=== PATIENT | male | born 1960 | race Caucasian/White ===

== ENCOUNTER 2020-04-06 08:30 | Emergency (ER) | payer OTHER ==
[~2020-04-06] VITALS: Ht 180.3 cm; Wt 86.2 kg
--- NOTE | 2020-04-06 09:16 | Emergency Department Note ---
History of Present Illnes History of Present Illness Chief Complaint: Back Pain History of Present Illness This is a 60 year old male with no significant past medical history, who presents for evaluation of low back pain and muscle spasm. Patient states that he stood up in [employer] 2 days ago, noticed pain in his mid low back. Pain is not radiated down into the buttocks or legs. He denies any numbness, tingling, or lower extremity weakness. Patient denies any back injury or heavy lifting. He states he had a similar episode approximately 25 years ago, but has no history of chronic back pain. He took some Tylenol for the pain, without relief. Patient states that he got out of the shower this morning, and reached for his shirt on the counter, and he developed a severe spasm in the low back. Historian: Patient Arrival Mode: [employer] Delivery [employer] Required: No Onset (how long ago): day(s) (2) Location: lower lumbar Quality: aching, tight Radiation: Reports non-radiation Severity: severe Onset quality: sudden Duration (how long): day(s) (2) Timing of current episode: constant Progression: unchanged Chronicity: new Context: Denies recent illness, Denies recent surgery, Denies trauma/injury Relieving factors: none Exacerbating factors: movement, other (pain is worse with standing) Associated symptoms: Reports denies other symptoms; Denies chest pain, Denies fever/chills, Denies nausea/vomiting, Denies weakness Treatments prior to arrival: other (Tylenol) Past Medical/Family History Physician Review I have reviewed the patient's past medical and family history. Any updates have been documented here. Past Medical History Recent Fever: No Clinical Suspicion of Infectio: No New/Unexplained Change in Ment: No Past Medical History: None Past Surgical History: Hernia Repair Other Surgery: SHOULDER Social History Smoking Cessation: Never Smoker Counseling Performed: No Any Illegal Drug Use: No TB Exposure/Symptoms: No Physically hurt or threatened: No Family History Family history of heart diseas: No Other Any Pre-Existing Lines (PICC,: No Is patient up to date on immun: Yes Review of Systems Review of Systems Constitutional: Denies chills, Denies fever, Denies weakness EENTM: Reports no symptoms Cardiovascular: Denies chest pain, Denies edema Respiratory: Denies cough, Denies dyspnea Gastrointestinal: Denies abdominal pain, Denies nausea, Denies vomiting Genitourinary: Reports no symptoms Musculoskeletal: Reports back pain; Denies muscle pain, Denies muscle stiffness, Denies neck pain Integumentary: Reports no symptoms Neurological: Denies numbness, Denies paresthesia, Denies tingling, Denies we akness Psychological: Denies anxiety, Denies depressed Endocrine: Reports no symptoms Hematological/Lymphatic: Reports no symptoms Review of other systems: All other systems negative Physical Exam Related Data Allergies: Coded Allergies: iodine (Verified Allergy, Mild, REDNESS TO HANDS , 04/06/20) Triage Vital Signs Vital Signs Date Time Temp Pulse Resp B/P (MAP) Pulse Ox O2 Delivery O2 Flow Rate FiO2 04/06/20 08:45 98.2 67 17 123/79 99 Vital signs reviewed: Yes Physical Exam CONSTITUTIONAL Constitutional: Present well-developed, Present well-nourished HENT HENT: Present normocephalic, Present atraumatic, Present oropharynx clear/moist, Present nose normal HENT L/R: Present left ext ear normal, Present right ext ear normal EYES Eyes: Reports PERRL, Reports conjunctivae normal NECK Neck: Present ROM normal PULMONARY Pulmonary: Present effort normal, Present breath sounds normal CARDIOVASCULAR Cardiovascular: Present regular rhythm, Present heart sounds normal, Present capillary refill normal, Present normal rate GASTROINTESTINAL Abdominal: Present soft, Present nontender, Present bowel sounds normal GENITOURINARY SKIN Skin: Present warm, Present dry; Absent bruising MUSCULOSKELETAL Musculoskeletal: Present ROM normal (pain with flexion more than 60 degrees; neg bilat straight leg raise) NEUROLOGICAL Neurological: Present alert, Present oriented x 3, Present no gross motor or sensory deficits; Absent cranial nerve deficit, Absent abnormal gait PSYCHOLOGICAL Psychological: Present mood/affect normal, Present judgement normal Assessment & Plan Medical Decision Making MDM You may take 1/2 - 1 Cyclobenzaprine, for muscle spasm, every 6 hours, as needed. Do NOT take and drive or operate machinery. You may take Tylenol #3 1-2 tabs tabs every 6 hours, as needed, for pain. Do NOT take and drive or operate machinery. Recommend that you apply ice to the area of low back pain, frequently, over the next 2 days, and then you may try heat. You may take Ibuprofen/Motrin 200 mg - 3-4 tabs together every 8 hours, with food, for back pain and inflammation. - Pt advised to f/u with PCP, if symptoms persist, for a possible MRI of the lumbar spine. (Consider "Airrosti" therapy, if your back pain persists.) Assessment & Plan Final Impression: (1) Low back pain (2) Muscle spasm Depart Disposition: HOME, SELF-CARE Last Vital Signs Date Time Temp Pulse Resp B/P (MAP) Pulse Ox O2 Delivery O2 Flow Rate FiO2 04/06/20 08:45 98.2 67 17 123/79 99 Home Meds Active Scripts Acetaminophen With Codeine (TYLENOL WITH CODEINE #3 TABLET) 1 Each Tablet, 1-2 TAB PO Q6H for pain, #20 TAB 0 Refills Prov:HENNY KHAN MD 04/06/20 Cyclobenzaprine Hcl (CYCLOBENZAPRINE HCL) 10 Mg Tablet, 10 MG PO TID for muscle spasm, #20 TAB 0 Refills Prov:HENNY KHAN MD 04/06/20 HENNY KHAN MD Apr 06, 2020 09:16
[2020-04-06] MEDS ORDERED: CYCLOBENZAPRINE10 MG PO (09:17)
[2020-04-06] MEDS ORDERED: TYLENOL WITH C1 EACH PO (09:18)
== END 2020-04-06 09:56 | disposition home or self-care (01) ==
LOC: FSED 08:30
DX: M54.5 Low back pain (principal); M62.830 Muscle spasm of back
CPT/HCPCS: 99282